=== PATIENT | female | born 1980 | race American Indian/Alaskan Native ===

== ENCOUNTER 2017-07-02 11:00 | Emergency (ER) | payer SELFPAY ==
[2017-07-02 11:42] LABS: Eosinophils % (Auto) 3.1 % (0.0-4.3); Hematocrit 37.7 % (30.3-42.9); Hemoglobin 13.3 gm/dl (10.1-14.3); Mean Corpuscular HGB Conc 35 % (30-34); Mean Corpuscular Hemoglobin 33 pg (28-32); Mean Corpuscular Volume 93 fl (79-97); Platelet Count 292 K/mm3 (140-440); Red Blood Count 4.05 M/mm3 (3.65-5.03); Red Cell Distribution Width 12.7 % (13.2-15.2)
[2017-07-02 12:00] LABS: Alanine Aminotransferase 16 units/L (7-56); Albumin 4.1 g/dL (3.9-5); Albumin/Globulin Ratio 1.5 %; Alkaline Phosphatase 29 units/L (35-129); Anion Gap 15 mmol/L; BUN/Creatinine Ratio 18; Blood Urea Nitrogen 9 mg/dL (7-17); Carbon Dioxide 25 mmol/L (22-30); Chloride 104.2 mmol/L (98-107); Glucose 89 mg/dL (65-100); Lipase 16 units/L (13-60); Potassium 4.3 mmol/L (3.6-5.0); Sodium 140 mmol/L (137-145); Total Protein 6.8 g/dL (6.3-8.2)
[2017-07-02] MEDS ORDERED: NACL 0.9% 1000 ML 1,000 ML IV ONE (12:51)
[2017-07-02] MEDS ORDERED: MORPHINE IV ONE (12:51)
[2017-07-02] MEDS ORDERED: NACL ONE (13:04)
[2017-07-02 13:18] LABS: Bilirubin,Urine NEG (Negative); Blood,Urine NEG (Negative); Ketones,Urine NEG (Negative); Leukocyte Esterase,Urine NEG (Negative); Mucus,Urine FEW /HPF; Nitrite,Urine NEG (Negative); Protein,Urine <15 mg/dL mg/dL (Negative)
--- NOTE | 2017-07-02 14:06 | Cat Scan Report ---
CT SCAN OF THE ABDOMEN AND PELVIS WITH CONTRAST: HISTORY: Right lower quadrant abdominal pain. TECHNIQUE: Helical CT in 1.25mm intervals following IV contrast. Sagittal and coronal reconstructions. FINDINGS: The liver is normal in size and is without focal defect. No gallstones or biliary dilatation are noted. The spleen and pancreas demonstrate a normal size and attenuation with no evidence of abnormal mass. The kidneys are normal in size and position with no evidence of hydronephrosis or mass. The adrenal glands are normal. There is no intestinal obstruction or ascites. Normal appendix. The abdominal aorta is normal. A 2.1 cm left ovarian cyst is identified. The right ovary and uterus are unremarkable. Bilateral tubal ligation clips are noted. There is no evidence of peritoneal air or fluid. There is no evidence of any abnormal masses or fluid collections within the pelvis. No adenopathy is identified. The bladder is normal. IMPRESSION: 2.1 cm left ovarian cyst. Otherwise, unremarkable exam of the abdomen and pelvis.
--- NOTE | 2017-07-02 15:21 | Emergency Department Report ---
ED Abdominal Pain HPI - General Chief Complaint: Abdominal Pain Stated Complaint: LOWER ABDOMINAL PAIN Time Seen by Provider: 07/02/17 12:48 Source: patient Mode of arrival: Ambulatory Limitations: No Limitations - History of Present Illness Initial Comments: 36-year-old female complaining of right lower quadrant pain. Patient states that she's had worsening pain on the right side radiating around to the back for approximately 12 hours. She denies nausea vomiting. No history of abdominal surgeries. No fevers or chills. MD Complaint: abdominal pain -: Gradual Location: RLQ Radiation: R flank Migration to: no migration Severity: moderate Severity scale (0 -10): 8 Quality: aching Consistency: constant Improves With: nothing Worsens With: nothing Associated Symptoms: denies: nausea, vomiting, diarrhea, chills, constipation - Related Data Previous Rx's Medication Instructions Recorded Last Taken Type Docusate Sodium [Colace] 100 mg PO BID PRN #20 capsule 04/01/16 Unknown Rx Magnesium Citrate [Citrate of 300 ml PO NOW #1 bottle 04/01/16 Unknown Rx Magnesia] Ibuprofen [Motrin 600 MG tab] 600 mg PO Q8H PRN #20 tablet 07/02/17 Unknown Rx Allergies Allergy/AdvReac Type Severity Reaction Status Date / Time No Known Allergies Allergy Verified 07/02/17 11:06 ED Review of Systems ROS: Stated complaint: LOWER ABDOMINAL PAIN Other details as noted in HPI Comment: All other systems reviewed and negative Constitutional: denies: chills, fever ENT: denies: ear pain, throat pain Respiratory: denies: cough, shortness of breath, wheezing Cardiovascular: denies: chest pain, palpitations Endocrine: no symptoms reported Gastrointestinal: denies: abdominal pain, nausea, diarrhea Genitourinary: denies: urgency, dysuria, discharge Musculoskeletal: denies: back pain, joint swelling, arthralgia Skin: denies: rash, lesions Neurological: denies: headache, weakness, paresthesias Psychiatric: denies: anxiety, depression Hematological/Lymphatic: denies: easy bleeding, easy bruising ED Past Medical Hx - Past Medical History Previous Medical History?: Yes Additional medical history: mitral valve prolapse - Surgical History Past Surgical History?: Yes Additional Surgical History: abscess drainage - Family History Family history: no significant - Social History Smoking Status: Never Smoker Substance Use Type: None - Medications Home Medications: Home Medications Medication Instructions Recorded Confirmed Last Taken Type Docusate Sodium [Colace] 100 mg PO BID PRN #20 capsule 04/01/16 Unknown Rx Magnesium Citrate [Citrate of 300 ml PO NOW #1 bottle 04/01/16 Unknown Rx Magnesia] Ibuprofen [Motrin 600 MG tab] 600 mg PO Q8H PRN #20 tablet 07/02/17 Unknown Rx ED Physical Exam - General Limitations: No Limitations General appearance: alert, in no apparent distress - Head Head exam: Present: atraumatic, normocephalic - Eye Eye exam: Present: normal appearance. Absent: scleral icterus, conjunctival injection - ENT ENT exam: Present: mucous membranes moist - Neck Neck exam: Present: normal inspection - Respiratory Respiratory exam: Present: normal lung sounds bilaterally. Absent: respiratory distress, wheezes, rales - Cardiovascular Cardiovascular Exam: Present: regular rate, normal rhythm. Absent: systolic murmur, diastolic murmur, rubs, gallop - GI/Abdominal GI/Abdominal exam: Present: soft, tenderness (right lower quadrant tenderness), normal bowel sounds. Absent: distended - Extremities Exam Extremities exam: Present: normal inspection - Back Exam Back exam: Present: normal inspection - Neurological Exam Neurological exam: Present: alert, oriented X3 - Psychiatric Psychiatric exam: Present: normal affect, normal mood - Skin Skin exam: Present: warm, dry, intact, normal color. Absent: rash ED Course Vital Signs 07/02/17 07/02/17 07/02/17 11:04 11:07 12:37 Temperature 98.2 F Pulse Rate 66 Respiratory 16 20 Rate Blood Pressure 115/72 O2 Sat by Pulse 100 Oximetry 07/02/17 13:15 Temperature Pulse Rate Respiratory 20 Rate Blood Pressure O2 Sat by Pulse Oximetry ED Medical Decision Making - Lab Data Result diagrams: 07/02/17 11:27 07/02/17 11:27 Laboratory Results - last 24 hr 07/02/17 07/02/17 07/02/17 11:27 11:27 11:27 WBC 8.0 RBC 4.05 Hgb 13.3 Hct 37.7 MCV 93 MCH 33 H MCHC 35 H RDW 12.7 L Plt Count 292 Lymph % (Auto) 44.0 H [place] % (Auto) 5.6 Eos % (Auto) 3.1 Baso % (Auto) 1.0 Lymph # 3.5 [place]ner # 0.4 Eos # 0.2 Baso # 0.1 Seg Neutrophils % 46.3 Seg Neutrophils # 3.7 Sodium 140 Potassium 4.3 Chloride 104.2 Carbon Dioxide 25 Anion Gap 15 BUN 9 Creatinine 0.5 L Estimated GFR > 60 BUN/Creatinine Ratio 18 Glucose 89 Calcium 9.0 Total Bilirubin 0.50 AST 16 ALT 16 Alkaline Phosphatase 29 L Total Protein 6.8 Albumin 4.1 Albumin/Globulin Ratio 1.5 Lipase 16 HCG, Qual Negative Urine Color Urine Turbidity Urine pH Ur Specific [place] Urine Protein Urine Glucose (UA) Urine Ketones Urine Blood Urine Nitrite Urine Bilirubin Urine Urobilinogen Ur Leukocyte Esterase Urine WBC (Auto) Urine RBC (Auto) U Epithel Cells (Auto) Urine Mucus 07/02/17 12:22 WBC RBC Hgb Hct MCV MCH MCHC RDW Plt Count Lymph % (Auto) [place] % (Auto) Eos % (Auto) Baso % (Auto) Lymph # [place] # Eos # Baso # Seg Neutrophils % Seg Neutrophils # Sodium Potassium Chloride Carbon Dioxide Anion Gap BUN Creatinine Estimated GFR BUN/Creatinine Ratio Glucose Calcium Total Bilirubin AST ALT Alkaline Phosphatase Total Protein Albumin Albumin/Globulin Ratio Lipase HCG, Qual Urine Color Yellow Urine Turbidity Clear Urine pH 7.0 Ur Specific [place] 1.018 Urine Protein <15 mg/dl Urine Glucose (UA) Neg Urine Ketones Neg Urine Blood Neg Urine Nitrite Neg Urine Bilirubin Neg Urine Urobilinogen 2.0 Ur Leukocyte Esterase Neg Urine WBC (Auto) 1.0 Urine RBC (Auto) 3.0 U Epithel Cells (Auto) 1.0 Urine Mucus Few - Medical Decision Making 36-year-old female with a history of retinal quadrant pain for approximately 10 hours. She does not have any fevers or chills. She has no nausea vomiting. She is mildly tender on clinical exam. CT of the abdomen and pelvis did not demonstrate intra-abdominal process. She does have a small ovarian cyst on the left side. The rest her labs were unremarkable. Given these findings: Discharged patient home is with no obvious cause of her abdominal pain. Portions of this chart were dictated with dictation software. There may be dictation errors contained within this note. Critical care attestation.: If time is entered above; I have spent that time in minutes in the direct care of this critically ill patient, excluding procedure time. ED Disposition Clinical Impression: Abdominal pain Disposition: TO HOME OR SELFCARE Is pt being admited?: No Does the pt Need Aspirin: No Condition: Stable Instructions: Abdominal Pain (ED) Prescriptions: Ibuprofen [Motrin 600 MG tab] 600 mg PO Q8H PRN #20 tablet PRN Reason: Pain Referrals: PRIMARY CARE, [Primary Care Provider] - 3-5 Days
[2017-07-02 16:10] VITALS: BP 109/72
== END 2017-07-02 16:10 | disposition home or self-care (01) ==
LOC: ED 11:00
DX: R10.31 Right lower quadrant pain (principal)
CPT/HCPCS: 36415; 74177; 80053; 81001; 83690; 84703; 85025; 96374; 99284; J2270; J7030; Q9967

== ENCOUNTER 2017-09-08 09:03 | Emergency (ER) | payer SELFPAY ==
[2017-09-08 09:59] LABS: Basophils % (Auto) 0.9 % (0.0-1.8); Eosinophils % (Auto) 2.6 % (0.0-4.3); Hematocrit 40.7 % (30.3-42.9); Hemoglobin 13.8 gm/dl (10.1-14.3); Mean Corpuscular HGB Conc 34 % (30-34); Mean Corpuscular Hemoglobin 32 pg (28-32); Mean Corpuscular Volume 95 fl (79-97); Platelet Count 307 K/mm3 (140-440); Red Cell Distribution Width 12.7 % (13.2-15.2); White Blood Count 6.3 K/mm3 (4.5-11.0)
[2017-09-08 10:28] LABS: Alanine Aminotransferase 18 units/L (7-56); Albumin 4.2 g/dL (3.9-5); Albumin/Globulin Ratio 1.5 %; Alkaline Phosphatase 31 units/L (35-129); Anion Gap 16 mmol/L; BUN/Creatinine Ratio 23; Blood Urea Nitrogen 9 mg/dL (7-17); Carbon Dioxide 25 mmol/L (22-30); Chloride 102.5 mmol/L (98-107); Glucose 108 mg/dL (65-100); Lipase 13 units/L (13-60); Potassium 3.9 mmol/L (3.6-5.0); Sodium 140 mmol/L (137-145)
--- NOTE | 2017-09-08 11:48 | Emergency Department Report ---
ED Abdominal Pain HPI - General Chief Complaint: Abdominal Pain Stated Complaint: ABD PAIN, GENERAL SICK Time Seen by Provider: 09/08/17 11:34 Source: patient Mode of arrival: Ambulatory Limitations: No Limitations - History of Present Illness Initial Comments: 37-year-old female past medical history MVP presents with complaint of 2-3 days of decreased appetite and nausea and right lower quadrant pain. Patient states she has had this pain intermittently for some time but has gotten acutely worse in the last 48 hours. Patient states she has no appetite and subjective fever chills. Also complaining of cough. Patient is awake alert and oriented 3 denies smoking or drug use. Denies any vaginal bleeding or discharge or trauma to the abdominal wall. Denies any bloody stool denies any recent travel or antibiotic use MD Complaint: abdominal pain Location: RLQ Radiation: none Migration to: RLQ Severity: moderate Severity scale (0 -10): 7 Quality: sharp Consistency: constant Worsens With: nothing Associated Symptoms: nausea, chills Treatments Prior to Arrival: NSAIDs - Related Data LMP Date: 08/27/17 Previous Rx's Medication Instructions Recorded Last Taken Type Docusate Sodium [Colace] 100 mg PO BID PRN #20 capsule 04/01/16 Unknown Rx Magnesium Citrate [Citrate of 300 ml PO NOW #1 bottle 04/01/16 Unknown Rx Magnesia] Ibuprofen [Motrin 600 MG tab] 600 mg PO Q8H PRN #20 tablet 07/02/17 Unknown Rx Acetaminophen/Codeine [Tylenol 1 tab PO Q6H PRN #14 tab 09/08/17 Unknown Rx /Codeine # 3 tab] Naproxen 500 mg PO BID PRN #30 tablet 09/08/17 Unknown Rx Nitrofurantoin Monohyd/M-Cryst 100 mg PO BID #14 capsule 09/08/17 Unknown Rx [Macrobid 100 mg Capsule] Ondansetron [Zofran Odt] 4 mg PO Q8HR PRN #15 tab.rapdis 09/08/17 Unknown Rx Allergies Allergy/AdvReac Type Severity Reaction Status Date / Time No Known Allergies Allergy Verified 07/02/17 11:06 ED Review of Systems ROS: Stated complaint: ABD PAIN, GENERAL SICK Other details as noted in HPI Constitutional: denies: chills, fever Eyes: denies: eye pain, eye discharge, vision change ENT: denies: ear pain, throat pain Respiratory: denies: cough, shortness of breath, wheezing Cardiovascular: denies: chest pain, palpitations Endocrine: no symptoms reported Gastrointestinal: abdominal pain (right sided ongoing for weeks but worse in the last 2-3 days). denies: nausea, diarrhea Genitourinary: denies: urgency, dysuria, discharge Musculoskeletal: denies: back pain, joint swelling, arthralgia Skin: denies: rash, lesions Neurological: denies: headache, weakness, paresthesias Psychiatric: denies: anxiety, depression Hematological/Lymphatic: denies: easy bleeding, easy bruising ED Past Medical Hx - Past Medical History Additional medical history: mitral valve prolapse - Surgical History Additional Surgical History: abscess drainage - Social History Smoking Status: Never Smoker Substance Use Type: None - Medications Home Medications: Home Medications Medication Instructions Recorded Confirmed Last Taken Type Docusate Sodium [Colace] 100 mg PO BID PRN #20 capsule 04/01/16 Unknown Rx Magnesium Citrate [Citrate of 300 ml PO NOW #1 bottle 04/01/16 Unknown Rx Magnesia] Ibuprofen [Motrin 600 MG tab] 600 mg PO Q8H PRN #20 tablet 07/02/17 Unknown Rx Acetaminophen/Codeine [Tylenol 1 tab PO Q6H PRN #14 tab 09/08/17 Unknown Rx /Codeine # 3 tab] Naproxen 500 mg PO BID PRN #30 tablet 09/08/17 Unknown Rx Nitrofurantoin Monohyd/M-Cryst 100 mg PO BID #14 capsule 09/08/17 Unknown Rx [Macrobid 100 mg Capsule] Ondansetron [Zofran Odt] 4 mg PO Q8HR PRN #15 tab.rapdis 09/08/17 Unknown Rx ED Physical Exam - General Limitations: No Limitations General appearance: alert, in no apparent distress - Head Head exam: Present: atraumatic, normocephalic - Eye Eye exam: Present: normal appearance, PERRL, EOMI - ENT ENT exam: Present: mucous membranes moist - Neck Neck exam: Present: normal inspection - Respiratory Respiratory exam: Present: normal lung sounds bilaterally. Absent: respiratory distress - Cardiovascular Cardiovascular Exam: Present: regular rate, normal rhythm. Absent: systolic murmur, diastolic murmur, rubs, gallop - GI/Abdominal GI/Abdominal exam: Present: tenderness (positive right lower quadrant tenderness on palpation of abdomen positive tenderness in McBurney's point positive iliopsoas sign), normal bowel sounds - External exam: Present: normal external exam Speculum exam: Present: normal speculum exam Bi-manual exam: Present: adnexal tenderness (right side mild) - Extremities Exam Extremities exam: Present: normal inspection - Back Exam Back exam: Present: normal inspection - Neurological Exam Neurological exam: Present: alert, oriented X3, CN II-XII intact, normal gait - Psychiatric Psychiatric exam: Present: normal affect, normal mood - Skin Skin exam: Present: warm, dry, intact, normal color. Absent: rash ED Course Vital Signs 09/08/17 09/08/17 09:08 20:16 Temperature 98.5 F 98 F Pulse Rate 68 77 Respiratory 20 18 Rate Blood Pressure 124/69 Blood Pressure 125/72 [Left] O2 Sat by Pulse 100 98 Oximetry ED Medical Decision Making - Lab Data Result diagrams: 09/08/17 09:15 09/08/17 09:15 - Medical Decision Making A/P: Abdominal pain 1-case discussed with ED attending and surgeon chief librarian circulation department Dr. Kidd, after initial CT shows possible appendiceal dilation surgeon requesting CT with by mouth contrast. 2-seconds CT unremarkable shows no evidence of appendicitis. Patient does have history of ovarian cyst which is noted on CT. Transvaginal ultrasound consistent with this. 3-based on exam CT and ultrasound findings it is likely that patient's ongoing pain secondary to right-sided ovarian cyst. Patient admits that pain has been going on for weeks and even possibly months prior to ED visit. Patient is aware she has right-sided ovarian cyst. 4- NSAIDs when necessary, I emphasized importance of follow-up with HEARING AND SPEECH ASSISTANT and primary care to the patient. I advised to return to the ED for severe fever chills inability to tolerate by mouth or worsen pain. Patient has experienced decrease in pain and is tolerating fluid and food by mouth without difficulty. Vital signs stable before discharge. Critical care attestation.: If time is entered above; I have spent that time in minutes in the direct care of this critically ill patient, excluding procedure time. ED Disposition Clinical Impression: Abdominal pain Qualifiers: Abdominal location: right lower quadrant Qualified Code(s): R10.31 - Right lower quadrant pain Ovarian cyst Qualifiers: Laterality: right Qualified Code(s): N83.201 - Unspecified ovarian cyst, right side Disposition: DC-01 TO HOME OR SELFCARE Is pt being admited?: No Does the pt Need Aspirin: No Condition: Stable Instructions: Ovarian Cyst (ED), Abdominal Pain (ED) Prescriptions: Acetaminophen/Codeine [Tylenol /Codeine # 3 tab] 1 tab PO Q6H PRN #14 tab PRN Reason: Pain Naproxen 500 mg PO BID PRN #30 tablet PRN Reason: Pain Nitrofurantoin Monohyd/M-Cryst [Macrobid 100 mg Capsule] 100 mg PO BID #14 capsule Ondansetron [Zofran Odt] 4 mg PO Q8HR PRN #15 tab.rapdis PRN Reason: Nausea Referrals: [facility] [Outside] - 3-5 Days [facility] [Outside] - 3-5 Days [facility] [Provider Group] - 3-5 Days [facility] [Provider Group] - 3-5 Days Forms: Accompanied Note, Work/School Release Form(ED) Time of Disposition: 22:16
[2017-09-08] MEDS ORDERED: NACL 0.9% 1000 ML 1,000 ML IV ONE (11:54)
[2017-09-08 12:04] LABS: Bilirubin,Urine NEG (Negative); Blood,Urine SM (Negative); Ketones,Urine NEG (Negative); Leukocyte Esterase,Urine NEG (Negative); Mucus,Urine FEW /HPF; Nitrite,Urine NEG (Negative); Protein,Urine <15 mg/dL mg/dL (Negative); Urobilinogen,Urine < 2.0 mg/dL (<2.0)
--- NOTE | 2017-09-08 13:13 | Cat Scan Report ---
CT scan of abdomen and pelvis with IV contrast: History: Right lower quadrant pain, probable with appendicitis. Findings: Normal lung bases. No pleural or pericardial effusion. Normal liver spleen pancreas and gallbladder. Normal adrenals kidney parenchyma and bladder. No free intraperitoneal fluid or. No evidence of adenopathy. 8mm diameter of dilated appendix. No periappendiceal inflammation. No bowel distention. Gaseous colon with stool in colon. Suspected small cyst right ovary. Impression: Dilated appendix. No periappendiceal inflammation. Suspected small cyst right ovary.
[2017-09-08] MEDS ORDERED: MORPHINE IV ONE ×2 (14:15→18:53)
[2017-09-08] MEDS ORDERED: ZOFRAN IV ONE (14:33)
--- NOTE | 2017-09-08 18:15 | Cat Scan Report ---
FINAL REPORT EXAM: CT ABDOMEN PELVIS WO CON HISTORY: per surgery needs PO contrast TECHNIQUE: CT of the abdomen and pelvis with oral contrast PRIORS: Correlation is made to today's earlier CT on September 08, 2017 at 1252 hours FINDINGS: No acute abnormalities identified in the lung bases. Spleen and pancreas are unremarkable. There is residual contrast from today's earlier contrast exam with some excretion in the kidneys. Kidneys are unremarkable there is no evidence for hydronephrosis. There is some thickening of the bladder wall noted which could reflect cystitis which may be acute or chronic. Oral contrast material is present within the stomach through the distal small bowel. Is has not reached the colon. The appendix is identified. The appendix measures between 0.36 and 0.54 centimeters. No periappendiceal inflammatory changes. No pericolonic inflammatory changes are identified Tubal ligation clips are noted at the adnexal bilaterally. IMPRESSION: No specific CT evidence for acute appendicitis Some thickening of the bladder wall noted which is incompletely distended. Could reflect cystitis which may be acute or chronic Otherwise negative study
[2017-09-08 20:17] VITALS: BP 125/72
--- NOTE | 2017-09-08 22:12 | Ultrasound Report ---
FINAL REPORT EXAM: US TRANSVAGINAL HISTORY: right ovarian pain TECHNIQUE: Ultrasound pelvis transvaginal with pulsed and color Doppler evaluation PRIORS: None. FINDINGS: Uterus is 10 x 4 x 4.3 x 5.6 centimeters. No focal myometrial abnormality seen. Endometrial stripe is 17.9 centimeters Right ovary is 3.3 x 2.2 x 3.0 centimeters. There is a 2.4 centimeter cyst within the right ovary Left ovary is 3.0 x 2.8 x 2.1 centimeters There is normal vascular flow to both ovaries with normal waveform on pulsed and color Doppler evaluation No free fluid seen in the cul-de-sac IMPRESSION: 2.4 centimeter right ovarian cyst Otherwise negative study
--- NOTE | 2017-09-08 22:16 | Ultrasound Report ---
FINAL REPORT EXAM: US PELVIS DUPLEX DOPPLER COMP HISTORY: right sided ovarian cyst ? blood flow TECHNIQUE: PRIORS: None. FINDINGS: Uterus is 10 x 4 x 4.3 x 5.6 centimeters. No focal myometrial abnormality seen. Endometrial stripe is 17.9 centimeters Right ovary is 3.3 x 2.2 x 3.0 centimeters. There is a 2.4 centimeter cyst within the right ovary Left ovary is 3.0 x 2.8 x 2.1 centimeters There is normal vascular flow to both ovaries with normal waveform on pulsed and color Doppler evaluation No free fluid seen in the cul-de-sac IMPRESSION: 2.4 centimeter right ovarian cyst Otherwise negative study
== END 2017-09-08 22:31 | disposition home or self-care (01) ==
LOC: ED 09:03
DX: N83.201 Unspecified ovarian cyst, right side (principal)
CPT/HCPCS: 36415; 74176; 74177; 76830; 80053; 81001; 81025; 82140; 83690; 85025; 87400; 93975; 96361; 96374; 96375; 96376; 99284; J2270; J2405; J7030; Q9967

== ENCOUNTER 2018-11-15 11:51 | Emergency (ER) | payer OTHER ==
[2018-11-15 12:09] VITALS: BP 123/82
--- NOTE | 2018-11-15 12:10 | Emergency Department Report ---
Blank Doc - Documentation Documentation: 38 y/o female with a 1 year history of lower abodminal and pelvic pain to right inguinal region worse with menses. Was told had fibroids. This epidode started yesterday. has not yet followed up with electronic system engineer. Is currently on menses Plan UA, UPT US at discretion of provider TBA
[2018-11-15] MEDS ORDERED: IBUPROFEN PO ONE (12:32)
[2018-11-15 12:49] LABS: Bilirubin,Urine NEG (Negative); Blood,Urine LG (Negative); Color,Urine Amber (Yellow); Mucus,Urine 3+ /HPF
[2018-11-15 12:50] LABS: HCG Qualitative,Urine Negative (Negative); RBC,Urine > 182.0 /HPF (0.0-6.0)
--- NOTE | 2018-11-15 15:13 | Emergency Department Report ---
ED Female HPI - General Chief complaint: Abdominal Pain Stated complaint: STOMACH/BACK PAIN Time Seen by Provider: 11/15/18 12:06 Source: patient Mode of arrival: Ambulatory Limitations: No Limitations - History of Present Illness Initial comments: Patient is a 38-year-old female who has a past medical history of ovarian cyst and possible uterine fibroids who is presenting with some left lower quadrant pain. Patient states the pain is 6 out of 10 severity as crampy in nature. Patient states pain is improved present for approximately a year off and on. Patient has not seen a CUSTODIAL SERVICES MANAGER secondary to financial constraints. Patient's been told she needs to see a production inspector. Patient states bleeding can be heavy and sometimes and she is bleeding heavily currently. Patient denies any chest pain shortness of breath fevers chills dysuria at this time. - Related Data Previous Rx's Medication Instructions Recorded Last Taken Type Docusate Sodium [Colace] 100 mg PO BID PRN #20 capsule 04/01/16 Unknown Rx Magnesium Citrate [Citrate of 300 ml PO NOW #1 bottle 04/01/16 Unknown Rx Magnesia] Ibuprofen [Motrin 600 MG tab] 600 mg PO Q8H PRN #20 tablet 07/02/17 Unknown Rx Acetaminophen/Codeine [Tylenol 1 tab PO Q6H PRN #14 tab 09/08/17 Unknown Rx /Codeine # 3 tab] Naproxen 500 mg PO BID PRN #30 tablet 09/08/17 Unknown Rx Nitrofurantoin Monohyd/M-Cryst 100 mg PO BID #14 capsule 09/08/17 Unknown Rx [Macrobid 100 mg Capsule] Ondansetron [Zofran Odt] 4 mg PO Q8HR PRN #15 tab.rapdis 09/08/17 Unknown Rx HYDROcodone/APAP 5-325 [[place] 1 each PO Q4HR PRN #12 tablet 11/15/18 Unknown Rx 5/325] Ibuprofen [Motrin] 800 mg PO Q8HR PRN #20 tablet 11/15/18 Unknown Rx Sulfamethoxazole/Trimethoprim 1 each PO BID #6 tablet 11/15/18 Unknown Rx [Bactrim DS TAB] medroxyPROGESTERone ACETATE 5 mg PO DAILY #7 tablet 11/15/18 Unknown Rx [Provera] Allergies Allergy/AdvReac Type Severity Reaction Status Date / Time No Known Allergies Allergy Verified 07/02/17 11:06 ED Review of Systems ROS: Stated complaint: STOMACH/BACK PAIN Other details as noted in HPI Comment: All other systems reviewed and negative ED Past Medical Hx - Past Medical History Additional medical history: mitral valve prolapse - Surgical History Additional Surgical History: abscess drainage - Social History Smoking Status: Never Smoker Substance Use Type: None - Medications Home Medications: Home Medications Medication Instructions Recorded Confirmed Last Taken Type Docusate Sodium [Colace] 100 mg PO BID PRN #20 capsule 04/01/16 Unknown Rx Magnesium Citrate [Citrate of 300 ml PO NOW #1 bottle 04/01/16 Unknown Rx Magnesia] Ibuprofen [Motrin 600 MG tab] 600 mg PO Q8H PRN #20 tablet 07/02/17 Unknown Rx Acetaminophen/Codeine [Tylenol 1 tab PO Q6H PRN #14 tab 09/08/17 Unknown Rx /Codeine # 3 tab] Naproxen 500 mg PO BID PRN #30 tablet 09/08/17 Unknown Rx Nitrofurantoin Monohyd/M-Cryst 100 mg PO BID #14 capsule 09/08/17 Unknown Rx [Macrobid 100 mg Capsule] Ondansetron [Zofran Odt] 4 mg PO Q8HR PRN #15 tab.rapdis 09/08/17 Unknown Rx HYDROcodone/APAP 5-325 [[place] 1 each PO Q4HR PRN #12 tablet 11/15/18 Unknown Rx 5/325] Ibuprofen [Motrin] 800 mg PO Q8HR PRN #20 tablet 11/15/18 Unknown Rx Sulfamethoxazole/Trimethoprim 1 each PO BID #6 tablet 11/15/18 Unknown Rx [Bactrim DS TAB] medroxyPROGESTERone ACETATE 5 mg PO DAILY #7 tablet 11/15/18 Unknown Rx [Provera] ED Physical Exam - General Limitations: No Limitations General appearance: alert, in no apparent distress - Head Head exam: Present: atraumatic, normocephalic - Eye Eye exam: Present: normal appearance - ENT ENT exam: Present: mucous membranes moist - Neck Neck exam: Present: normal inspection - Respiratory Respiratory exam: Present: normal lung sounds bilaterally. Absent: respiratory distress, wheezes, rales, rhonchi - Cardiovascular Cardiovascular Exam: Present: regular rate, normal rhythm. Absent: systolic murmur, diastolic murmur, rubs, gallop - GI/Abdominal GI/Abdominal exam: Present: soft, normal bowel sounds. Absent: distended, tenderness, guarding, rebound - Extremities Exam Extremities exam: Present: normal inspection - Back Exam Back exam: Present: normal inspection - Neurological Exam Neurological exam: Present: alert, oriented X3 - Psychiatric Psychiatric exam: Present: normal affect, normal mood - Skin Skin exam: Present: warm, dry, intact, normal color. Absent: rash ED Course Vital Signs 11/15/18 12:07 Temperature 97.6 F Pulse Rate 70 Respiratory 18 Rate Blood Pressure 123/82 O2 Sat by Pulse 100 Oximetry ED Medical Decision Making - Lab Data Lab Results 11/15/18 Range/Units 12:35 Urine Color Sandy (Yellow) Urine Turbidity Slightly-cloudy (Clear) Urine pH 6.0 (5.0-7.0) Ur Specific Jackson 1.027 (1.003-1.030) Urine Protein 30 mg/dl (Negative) mg/dL Urine Glucose (UA) Neg (Negative) mg/dL Urine Ketones Neg (Negative) mg/dL Urine Blood Lg (Negative) Urine Nitrite Neg (Negative) Urine Bilirubin Neg (Negative) Urine Urobilinogen 4.0 (<2.0) mg/dL Ur Leukocyte Esterase Tr (Negative) Urine WBC (Auto) 6.0 (0.0-6.0) /HPF Urine RBC (Auto) > 182.0 (0.0-6.0) /HPF U Epithel Cells (Auto) 4.0 (0-13.0) /HPF Urine Mucus 3+ /HPF Urine HCG, Qual Negative (Negative) - Medical Decision Making Patient is a 38-year-old Female presenting with some lower abdominal discomfort and a history of heavy menses with pain. Patient is to follow with CUSTODIAL SERVICES MANAGER. Given information to assess at [facility]'s CUSTODIAL SERVICES MANAGER Dr. Dill. Patient be discharged home. Critical care attestation.: If time is entered above; I have spent that time in minutes in the direct care of this critically ill patient, excluding procedure time. ED Disposition Clinical Impression: Dysmenorrhea UTI (urinary tract infection) Qualifiers: Urinary tract infection type: site unspecified Hematuria presence: without hematuria Qualified Code(s): N39.0 - Urinary tract infection, site not specified Disposition: TO HOME OR SELFCARE Is pt being admited?: No Does the pt Need Aspirin: No Condition: Stable Instructions: Dysmenorrhea (ED) Referrals: KEITH COSBY MD [Primary Care Provider] - 3-5 Days Time of Disposition: 15:12
== END 2018-11-15 15:26 | disposition home or self-care (01) ==
LOC: ED 11:51
DX: N94.6 Dysmenorrhea, unspecified (principal); N39.0 Urinary tract infection, site not specified
CPT/HCPCS: 81001; 81025; 99283

== ENCOUNTER 2019-04-12 09:48 | Emergency (ER) | payer SELFPAY ==
[2019-04-12 10:32] LABS: Bilirubin,Urine NEG (Negative); Blood,Urine NEG (Negative); Color,Urine Yellow (Yellow); Mucus,Urine 1+ /HPF; Protein,Urine <15 mg/dL mg/dL (Negative); Urobilinogen,Urine < 2.0 mg/dL (<2.0)
[2019-04-12 11:17] LABS: Basophils # (Auto) 0.1 K/mm3 (0.0-0.1); Basophils % (Auto) 0.9 % (0.0-1.8); Eosinophils # (Auto) 0.1 K/mm3 (0.0-0.4); Eosinophils % (Auto) 1.8 % (0.0-4.3); Hematocrit 42.5 % (30.3-42.9); Hemoglobin 14.5 gm/dl (10.1-14.3); Lymphocytes # (Auto) 3.1 K/mm3 (1.2-5.4); Lymphocytes % (Auto) 41.8 % (13.4-35.0); Mean Corpuscular HGB Conc 34 % (30-34); Mean Corpuscular Volume 98 fl (79-97); Monocytes # (Auto) 0.4 K/mm3 (0.0-0.8); Platelet Count 308 K/mm3 (140-440); Red Blood Count 4.35 M/mm3 (3.65-5.03); Red Cell Distribution Width 13.1 % (13.2-15.2)
[2019-04-12] MEDS ORDERED: MORPHINE IV ONE ×2 (11:40→15:26)
[2019-04-12] MEDS ORDERED: ZOFRAN IV ONE (11:40)
[2019-04-12 11:41] LABS: Alanine Aminotransferase 22 units/L (7-56); Albumin 4.1 g/dL (3.9-5); BUN/Creatinine Ratio 14; Blood Urea Nitrogen 7 mg/dL (7-17); Calcium 8.8 mg/dL (8.4-10.2); Hemolysis Index 17
--- NOTE | 2019-04-12 11:50 | Emergency Department Report ---
ED General Adult HPI - General Chief complaint: Abdominal Pain Stated complaint: ABD/BACK PAIN/BLEEDING/VOMIT/SOB Time Seen by Provider: 04/12/19 11:15 Source: patient Mode of arrival: Ambulatory Limitations: No Limitations - History of Present Illness Initial comments: The patient presents to the emergency department with a chief complaint diffuse abdominal pain for the last 3 days with nausea vomiting. Patient also has complaint of pelvic pain that has been present for greater than 3 months and has had a workup with a resultant diagnosis of endometriosis and ovarian cyst. -: Gradual Location: abdomen Severity scale (0 -10): 8 Quality: aching Consistency: constant Improves with: none Worsens with: none Associated Symptoms: denies other symptoms Treatments Prior to Arrival: none - Related Data Previous Rx's Medication Instructions Recorded Last Taken Type Docusate Sodium [Colace] 100 mg PO BID PRN #20 capsule 04/01/16 Unknown Rx Magnesium Citrate [Citrate of 300 ml PO NOW #1 bottle 04/01/16 Unknown Rx Magnesia] Ibuprofen [Motrin 600 MG tab] 600 mg PO Q8H PRN #20 tablet 07/02/17 Unknown Rx Acetaminophen/Codeine [Tylenol 1 tab PO Q6H PRN #14 tab 09/08/17 Unknown Rx /Codeine # 3 tab] Naproxen 500 mg PO BID PRN #30 tablet 09/08/17 Unknown Rx Nitrofurantoin Monohyd/M-Cryst 100 mg PO BID #14 capsule 09/08/17 Unknown Rx [Macrobid 100 mg Capsule] Ondansetron [Zofran Odt] 4 mg PO Q8HR PRN #15 tab.rapdis 09/08/17 Unknown Rx HYDROcodone/APAP 5-325 [[place] 1 each PO Q4HR PRN #12 tablet 11/15/18 Unknown Rx 5/325] Ibuprofen [Motrin] 800 mg PO Q8HR PRN #20 tablet 11/15/18 Unknown Rx Sulfamethoxazole/Trimethoprim 1 each PO BID #6 tablet 11/15/18 Unknown Rx [Bactrim DS TAB] medroxyPROGESTERone ACETATE 5 mg PO DAILY #7 tablet 11/15/18 Unknown Rx [Provera] HYDROcodone/APAP 5-325 [[place] 1 each PO Q6HR PRN #12 tablet 04/12/19 Unknown Rx 5/325] Ondansetron [Zofran Odt] 4 mg PO Q4HR PRN #20 tab.rapdis 04/12/19 Unknown Rx Allergies Allergy/AdvReac Type Severity Reaction Status Date / Time No Known Allergies Allergy Verified 04/12/19 10:00 ED Review of Systems ROS: Stated complaint: ABD/BACK PAIN/BLEEDING/VOMIT/SOB Other details as noted in HPI Constitutional: denies: chills, fever Eyes: denies: eye pain, eye discharge, vision change ENT: denies: ear pain, throat pain Respiratory: denies: cough, shortness of breath, wheezing Cardiovascular: denies: chest pain, palpitations Endocrine: no symptoms reported Gastrointestinal: abdominal pain, nausea, vomiting. denies: diarrhea Genitourinary: denies: urgency, dysuria, discharge Musculoskeletal: denies: back pain, joint swelling, arthralgia Skin: denies: rash, lesions Neurological: denies: headache, weakness, paresthesias Psychiatric: denies: anxiety, depression Hematological/Lymphatic: denies: easy bleeding, easy bruising ED Past Medical Hx - Past Medical History Previous Medical History?: Yes Additional medical history: mitral valve prolapse - Surgical History Past Surgical History?: Yes Additional Surgical History: abscess drainage - Social History Smoking Status: Never Smoker Substance Use Type: None - Medications Home Medications: Home Medications Medication Instructions Recorded Confirmed Last Taken Type Docusate Sodium [Colace] 100 mg PO BID PRN #20 capsule 04/01/16 Unknown Rx Magnesium Citrate [Citrate of 300 ml PO NOW #1 bottle 04/01/16 Unknown Rx Magnesia] Ibuprofen [Motrin 600 MG tab] 600 mg PO Q8H PRN #20 tablet 07/02/17 Unknown Rx Acetaminophen/Codeine [Tylenol 1 tab PO Q6H PRN #14 tab 09/08/17 Unknown Rx /Codeine # 3 tab] Naproxen 500 mg PO BID PRN #30 tablet 09/08/17 Unknown Rx Nitrofurantoin Monohyd/M-Cryst 100 mg PO BID #14 capsule 09/08/17 Unknown Rx [Macrobid 100 mg Capsule] Ondansetron [Zofran Odt] 4 mg PO Q8HR PRN #15 tab.rapdis 09/08/17 Unknown Rx HYDROcodone/APAP 5-325 [[place] 1 each PO Q4HR PRN #12 tablet 11/15/18 Unknown Rx 5/325] Ibuprofen [Motrin] 800 mg PO Q8HR PRN #20 tablet 11/15/18 Unknown Rx Sulfamethoxazole/Trimethoprim 1 each PO BID #6 tablet 11/15/18 Unknown Rx [Bactrim DS TAB] medroxyPROGESTERone ACETATE 5 mg PO DAILY #7 tablet 11/15/18 Unknown Rx [Provera] HYDROcodone/APAP 5-325 [[place] 1 each PO Q6HR PRN #12 tablet 04/12/19 Unknown Rx 5/325] Ondansetron [Zofran Odt] 4 mg PO Q4HR PRN #20 tab.rapdis 04/12/19 Unknown Rx ED Physical Exam - General Limitations: No Limitations General appearance: alert, in no apparent distress - Head Head exam: Present: atraumatic, normocephalic - Eye Eye exam: Present: normal appearance, PERRL, EOMI - ENT ENT exam: Present: mucous membranes dry - Neck Neck exam: Present: normal inspection - Respiratory Respiratory exam: Present: normal lung sounds bilaterally. Absent: respiratory distress - Cardiovascular Cardiovascular Exam: Present: regular rate, normal rhythm. Absent: systolic murmur, diastolic murmur, rubs, gallop - GI/Abdominal GI/Abdominal exam: Present: soft, tenderness (diffuse tenderness to palpation), normal bowel sounds - Extremities Exam Extremities exam: Present: normal inspection - Back Exam Back exam: Present: normal inspection - Neurological Exam Neurological exam: Present: alert, oriented X3 - Psychiatric Psychiatric exam: Present: normal affect, normal mood - Skin Skin exam: Present: warm, dry, intact, normal color. Absent: rash ED Course Vital Signs 04/12/19 04/12/19 04/12/19 09:56 12:06 12:36 Temperature 98.2 F Pulse Rate 83 Respiratory 20 18 18 Rate Blood Pressure 133/81 [Right] O2 Sat by Pulse 99 Oximetry 04/12/19 15:35 Temperature Pulse Rate Respiratory 18 Rate Blood Pressure [Right] O2 Sat by Pulse Oximetry ED Medical Decision Making - Lab Data Result diagrams: 04/12/19 10:54 04/12/19 10:54 Lab Results 04/12/19 04/12/19 04/12/19 Range/Units 10:54 10:54 10:54 WBC 7.5 (4.5-11.0) K/mm3 RBC 4.35 (3.65-5.03) M/mm3 Hgb 14.5 H (10.1-14.3) gm/dl Hct 42.5 (30.3-42.9) % MCV 98 H (79-97) fl MCH 33 H (28-32) pg MCHC 34 (30-34) % RDW 13.1 L (13.2-15.2) % Plt Count 308 (140-440) K/mm3 Lymph % (Auto) 41.8 H (13.4-35.0) % Mower % (Auto) 5.0 (0.0-7.3) % Eos % (Auto) 1.8 (0.0-4.3) % Baso % (Auto) 0.9 (0.0-1.8) % Lymph # 3.1 (1.2-5.4) K/mm3 Mower # 0.4 (0.0-0.8) K/mm3 Eos # 0.1 (0.0-0.4) K/mm3 Baso # 0.1 (0.0-0.1) K/mm3 Seg Neutrophils % 50.5 (40.0-70.0) % Seg Neutrophils # 3.8 (1.8-7.7) K/mm3 Sodium 139 (137-145) mmol/L Potassium 4.2 (3.6-5.0) mmol/L Chloride 104.8 (98-107) mmol/L Carbon Dioxide 24 (22-30) mmol/L Anion Gap 14 mmol/L BUN 7 (7-17) mg/dL Creatinine 0.5 L (0.7-1.2) mg/dL Estimated GFR > 60 ml/min BUN/Creatinine Ratio 14 % Glucose 83 (65-100) mg/dL Calcium 8.8 (8.4-10.2) mg/dL Total Bilirubin 0.30 (0.1-1.2) mg/dL AST 19 (5-40) units/L ALT 22 (7-56) units/L Alkaline Phosphatase 34 L (35-129) units/L Total Protein 6.8 (6.3-8.2) g/dL Albumin 4.1 (3.9-5) g/dL Albumin/Globulin Ratio 1.5 % Lipase (13-60) units/L HCG, Qual Negative (Negative) Urine Color (Yellow) Urine Turbidity (Clear) Urine pH (5.0-7.0) Ur Specific Jackson (1.003-1.030) Urine Protein (Negative) mg/dL Urine Glucose (UA) (Negative) mg/dL Urine Ketones (Negative) mg/dL Urine Blood (Negative) Urine Nitrite (Negative) Urine Bilirubin (Negative) Urine Urobilinogen (<2.0) mg/dL Ur Leukocyte Esterase (Negative) Urine WBC (Auto) (0.0-6.0) /HPF Urine RBC (Auto) (0.0-6.0) /HPF U Epithel Cells (Auto) (0-13.0) /HPF Urine Mucus /HPF 04/12/19 04/12/19 Range/Units 10:54 Unknown WBC (4.5-11.0) K/mm3 RBC (3.65-5.03) M/mm3 Hgb (10.1-14.3) gm/dl Hct (30.3-42.9) % MCV (79-97) fl MCH (28-32) pg MCHC (30-34) % RDW (13.2-15.2) % Plt Count (140-440) K/mm3 Lymph % (Auto) (13.4-35.0) % Mower % (Auto) (0.0-7.3) % Eos % (Auto) (0.0-4.3) % Baso % (Auto) (0.0-1.8) % Lymph # (1.2-5.4) K/mm3 Mower # (0.0-0.8) K/mm3 Eos # (0.0-0.4) K/mm3 Baso # (0.0-0.1) K/mm3 Seg Neutrophils % (40.0-70.0) % Seg Neutrophils # (1.8-7.7) K/mm3 Sodium (137-145) mmol/L Potassium (3.6-5.0) mmol/L Chloride (98-107) mmol/L Carbon Dioxide (22-30) mmol/L Anion Gap mmol/L BUN (7-17) mg/dL Creatinine (0.7-1.2) mg/dL Estimated GFR ml/min BUN/Creatinine Ratio % Glucose (65-100) mg/dL Calcium (8.4-10.2) mg/dL Total Bilirubin (0.1-1.2) mg/dL AST (5-40) units/L ALT (7-56) units/L Alkaline Phosphatase (35-129) units/L Total Protein (6.3-8.2) g/dL Albumin (3.9-5) g/dL Albumin/Globulin Ratio % Lipase 19 (13-60) units/L HCG, Qual (Negative) Urine Color Yellow (Yellow) Urine Turbidity Clear (Clear) Urine pH 6.0 (5.0-7.0) Ur Specific [place] 1.021 (1.003-1.030) Urine Protein <15 mg/dl (Negative) mg/dL Urine Glucose (UA) Neg (Negative) mg/dL Urine Ketones Neg (Negative) mg/dL Urine Blood Neg (Negative) Urine Nitrite Neg (Negative) Urine Bilirubin Neg (Negative) Urine Urobilinogen < 2.0 (<2.0) mg/dL Ur Leukocyte Esterase Neg (Negative) Urine WBC (Auto) 2.0 (0.0-6.0) /HPF Urine RBC (Auto) 3.0 (0.0-6.0) /HPF U Epithel Cells (Auto) 1.0 (0-13.0) /HPF Urine Mucus 1+ /HPF White count 19,000 with - Radiology Data Radiology results: report reviewed - Medical Decision Making Results discussed with the patient Critical care attestation.: If time is entered above; I have spent that time in minutes in the direct care of this critically ill patient, excluding procedure time. ED Disposition Clinical Impression: Abdominal pain, Pelvic pain Disposition: TO HOME OR SELFCARE Is pt being admited?: No Does the pt Need Aspirin: No Condition: Stable Instructions: Abdominal Pain (ED), Chronic Pelvic Pain in Women (ED) Additional Instructions: return if worse Referrals: KEITH COSBY MD [Primary Care Provider] - 3-5 Days [facility] [Provider Group] - 3-5 Days [facility] [Provider Group] - 3-5 Days [facility] [Provider Group] - 3-5 Days [facility] [Provider Group] - 3-5 Days Time of Disposition: 15:52
[2019-04-12] MEDS ORDERED: NACL 0.9% 1000 ML 1,000 ML ONE (11:53)
[2019-04-12] MEDS ORDERED: NACL 0.9% 1000 ML 1,000 ML IV ONE (12:00)
[2019-04-12] MEDS ORDERED: MORPHINE ONE (15:31)
--- NOTE | 2019-04-12 15:44 | Cat Scan Report ---
CT ABDOMEN AND PELVIS WITHOUT CONTRAST HISTORY: Lower abdominal pain and back pain for 3 days, nausea and constipation COMPARISON: 09/08/2017 TECHNIQUE: Axial CT images were obtained through the abdomen and pelvis without IV contrast. Sagittal and coronal reformatted images. All CT scans at this location are performed using CT dose reduction for ALARA by means of automated exposure control. FINDINGS: CT ABDOMEN: Lung Bases: Clear. Liver: No significant abnormality. Biliary: No significant abnormality. Spleen: No significant abnormality. Unenlarged. Pancreas: No significant abnormality. Adrenals: No significant abnormality. Kidneys: The kidneys are normal size, contour and position. A few punctate renal calyceal stones are suspected in both kidneys. No ureteral stones or hydronephrosis. The bladder is unremarkable. Lymphatics: No lymphadenopathy. Vasculature: No significant abnormality. Bowel/Peritoneum: No significant abnormality. No free air. No free fluid. Normal appendix. CT PELVIS: : No significant abnormality. Bilateral tubal ligation clips are in place. Osseous Structures: No significant abnormality. Additional Findings: None IMPRESSION: No acute inflammatory process is identified. Punctate bilateral renal stones, nonobstructing. Signer Name: Hebert Salomon Jr, MD Signed: 04/12/2019 3:39 PM Workstation Name: [id number]
[2019-04-12 16:10] VITALS: BP 108/77
== END 2019-04-12 16:09 | disposition home or self-care (01) ==
LOC: ED 09:48
DX: R10.84 Generalized abdominal pain (principal); R11.2 Nausea with vomiting, unspecified; R10.2 Pelvic and perineal pain; Z98.890 Other specified postprocedural states
CPT/HCPCS: 36415; 74176; 80053; 81001; 83690; 84703; 85025; 96361; 96374; 96375; 96376; 99284; J2270; J2405; J7030